=== PATIENT | male | born 1965 | race Hispanic/Latino ===

== ENCOUNTER → 2024-07-09 12:36 | Outpatient (REF) | payer MEDICARE, MEDICAID, SELFPAY | LOC: RCS 12:36 | PROVIDERS: ATTENDING PHYSICIAN Internal Medicine Cardiovascular Disease; FAMILY PHYSICIAN Family Medicine | DX: I42.8 Other cardiomyopathies (principal); Z95.810 Presence of automatic (implantable) cardiac defibrillator | CPT/HCPCS: 93306; Q9950 ==

== ENCOUNTER 2024-07-17 05:51 | Day surgery (SDC) | payer MEDICARE, MEDICAID, SELFPAY ==
[2024-07-10 08:46] VITALS: BMI 34.6
[2024-07-17 06:31] VITALS: BMI 34.5
[2024-07-17 06:50] VITALS: BP 109/73
--- NOTE | 2024-07-17 08:27 | W.ICD.CONTRA ---
Post ICD/ROCKET MOTOR TESTER-D
-
History of TN?: No
LV Function
Left ventricular function study result?: Ejection Fraction </= 35%
ACEI/ARB/ARNI
Patient already on ACEI/ARB/ARNI: Yes
Beta-Sheela
Patient already on Beta Sheeal: No
[2024-07-17 09:34] VITALS: BP 111/64
[2024-07-17 09:48] VITALS: BP 111/86
[2024-07-17 10:03] VITALS: BP 106/70
[2024-07-17 10:18] VITALS: BP 102/73
[2024-07-17 10:34] VITALS: BP 95/51
--- NOTE | 2024-07-17 14:15 | ITS.CL.ICD ---
Ssis Developer - ICD
Implantable Cardioverter Defibrillator
Procedure Report:
Date of Procedure: July 17, 2024.
Procedures: ICD Pulse Generator Explantation and ICD Pulse Generator Implantation.
Indication: ICD at the elective replacement indicator. Nonischemic cardiomyopathy. LVEF 30%. Myotonic dystrophy. The patient's life expectancy exceeds one year. The first ICD was placed at [facility] in [place].
Performing physician: Jd Monroe MD, [facility].
Implant:�ICD Pulse Generator: [employer], Model# D232; Serial# [id number].
Explanted ICD Pulse Generator (Implanted 09/05/2012): [employer]; Model E140; Serial# [id number].
Retained Leads (Implanted 09/05/2012): RV ICD lead: [employer]; Model# 0292; Serial# [id number].
Technique: A time-out was performed. The procedure site was identified. The anesthesia service anesthetized the patient. Preoperative cefazolin was administered before the skin incision. The patient was prepped and draped in the usual fashion. Local
anesthetic was applied to the left pre-pectoral subcutaneous tissue. A 3-inch incision was made over the pulse generator. The capsule was entered with Bovie cautery. The old ICD pulse generator was explanted. No Bovie cautery was applied to the lead
system. The leads were appropriately attached to the new ICD pulse generator. The pocket was revised to allow the new device to be inserted. The pocket was irrigated with an antibiotic solution. Hemostasis was excellent. The device and leads were
placed in the pocket. The incision was closed in three layers with an absorbable suture. Steri-strips and an Aquacel dressing were applied. There was no blood loss. There were no complications. No fluoroscopy was used.
Lead Analysis: R: 25 mV; Threshold: 1.2 V @ 0.4� ms; Impedance: 579 ohms.� Shock impedance 68 ohms.
Final Programming: VT1 180 (ATP, shocks); VT2 220 bpm (ATP, shocks); VF 250 bpm (shocks); Nagi: VVI 40 bpm. The programming is the same as his prior ICD.
�
Conclusion: Uncomplicated ICD change. The ICD system is MRI safe/conditional.
Recommendation: Routine post ICD care.
cc: Endy Bender MD and Blaise Belle MD.
== END 2024-07-17 10:50 | disposition home or self-care (01) ==
LOC: CATH 05:51
PROVIDERS: ATTENDING PHYSICIAN Internal Medicine Cardiovascular Disease; OTHER PHYSICIAN Internal Medicine Cardiovascular Disease
DX: Z45.02 Encounter for adjustment and management of automatic implantable cardiac defibrillator (principal); I42.8 Other cardiomyopathies; G71.11 Myotonic muscular dystrophy; E66.9 Obesity, unspecified; I10 Essential (primary) hypertension; D50.9 Iron deficiency anemia, unspecified; Z79.899 Other long term (current) drug therapy; Z79.52 Long term (current) use of systemic steroids; Z68.34 Body mass index [BMI] 34.0-34.9, adult; R41.89 Other symptoms and signs involving cognitive functions and awareness
CPT/HCPCS: 33262; C1722

== ENCOUNTER → 2024-08-20 07:00 | Outpatient (REF) | payer MEDICARE, MEDICAID, SELFPAY ==
[2024-08-20] MEDS: LEXISCAN 0.4 MG IV (08:41)
[2024-08-20] MEDS: AMINOPHYLLINE 75 MG IV (09:04)
== END ==
LOC: RCS 07:00
PROVIDERS: ATTENDING PHYSICIAN Internal Medicine Cardiovascular Disease; FAMILY PHYSICIAN Family Medicine
DX: I42.9 Cardiomyopathy, unspecified (principal); I42.8 Other cardiomyopathies; G71.11 Myotonic muscular dystrophy; R06.09 Other forms of dyspnea
CPT/HCPCS: 78452; 93017; A9500; J2785

== ENCOUNTER → 2025-06-25 11:26 | Outpatient (REF) | payer MEDICARE, MEDICAID, SELFPAY | LOC: HWRCS 11:26 | PROVIDERS: ATTENDING PHYSICIAN Internal Medicine Cardiovascular Disease; FAMILY PHYSICIAN Family Medicine | DX: I42.8 Other cardiomyopathies (principal); G71.11 Myotonic muscular dystrophy | CPT/HCPCS: 93306 ==